=== PATIENT | female | born 1985 | race Caucasian/White ===

== ENCOUNTER 2020-01-27 10:14 | Emergency (ER) | payer MEDICAID ==
[~2020-01-27] VITALS: Ht 157.5 cm; Wt 66.2 kg
[2020-01-27 10:23] VITALS: BP 115/82; Ht 157.5 cm; Wt 66.2 kg
[2020-01-27 11:25] LABS: microscopic required? NO
[2020-01-27 11:36] LABS: CALCIUM 8.6 mg/dL (8.5-10.1); CARBON DIOXIDE 26.4 mmol/L (21-32); CHLORIDE SERUM 104 mmol/L (98-107); CREATININE SERUM 0.6 mg/dL (0.6-1.0); GFR1 > 60 mL/min; GLUCOSE SERUM 91 mg/dL (74-106); POTASSIUM SERUM 4.4 mmol/L (3.5-5.1); SODIUM SERUM 137 mmol/L (136-145)
[2020-01-27 11:38] LABS: ALBUMIN 3.9 g/dL (3.4-5.0); ALKALINE PHOSPHATASE 91 U/L (46-116); ALT/SGPT 24 U/L (14-59); AST/SGOT 14 U/L (15-37); BILIRUBIN TOTAL 0.3 mg/dL (0.20-1.00); TOTAL PROTEIN, SERUM 7.5 g/dL (6.4-8.2)
[2020-01-27 11:41] LABS: BASOPHIL % 0.4 % (0-2); PLATELET COUNT 290 x10^3mcL (130-400); RED CELL DISTRIBUTION WIDTH 12.5 % (11.5-14.5)
[2020-01-27 12:04] LABS: urine erythrocyte NEGATIVE (NEGATIVE)
== END 2020-01-27 13:16 | disposition home or self-care (01) ==
LOC: ED 10:14
PROVIDERS: Emergency Medicine
DX: B34.9 Viral infection, unspecified (principal); R10.30 Lower abdominal pain, unspecified; M54.2 Cervicalgia; N89.8 Other specified noninflammatory disorders of vagina
CPT/HCPCS: 36415